=== PATIENT | male | born 1995 ===

== ENCOUNTER 2024-08-16 10:41 | Outpatient (CLI) | payer BC, SELFPAY | END 2024-08-16 10:42 | disposition home or self-care (01) | LOC: LKVREF 10:43 | PROVIDERS: PCP Family Medicine; Visit Provider Family Medicine | DX: R10.9 Unspecified abdominal pain (principal); R39.15 Urgency of urination; Z83.3 Family history of diabetes mellitus; Z13.6 Encounter for screening for cardiovascular disorders | CPT/HCPCS: 80053; 80061 ==